=== PATIENT | female | born 1995 | race Caucasian/White ===

== ENCOUNTER 2016-10-28 13:10 | Emergency (ER) | payer BC ==
[~2016-10-28] VITALS: Ht 160 cm; Wt 61.0 kg
[2016-10-28 13:12] VITALS: Ht 160 cm; Wt 61.0 kg
[2016-10-28] MEDS ORDERED: ACETAMINOPHEN 325 MG TAB PO STA (13:53)
[2016-10-28] MEDS ORDERED: ONDANSETRON (ODT) 4 MG TAB ODT STA (13:53)
[2016-10-28 14:12] LABS: URINE BLOOD (Dip) POC Trace-intact (NEGATIVE)
[2016-10-28 14:36] LABS: ADD SCAN DIFF NO
[2016-10-28 14:40] LABS: BASOPHIL # 0.1 10^3/ul (0.0-0.1); BASOPHILS % 0.5 % (0.0-2.0); EOSINOPHILS # 1.5 10^3/ul (0.0-0.5); HEMATOCRIT 47.9 % (37.0-47.0); HEMOGLOBIN 16.6 g/dl (12.0-16.0); LYMPHOCYTES % 27.7 % (15.0-51.0); MEAN CORPUSCULAR HEMOGLOBIN 31.9 pg (29.0-33.0); MEAN CORPUSCULAR HGB CONC 34.7 g/dl (32.0-37.0); MEAN CORPUSCULAR VOLUME 92.1 fl (82.0-101.0); MEAN PLATELET VOLUME 9.9 fl (7.4-10.4); MONOCYTE # 0.7 10^3/ul (0.3-0.9); MONOCYTES % 6.1 % (0.0-11.0); NEUTROPHIL # 5.6 10^3/ul (1.6-7.5); NEUTROPHILS % 51.3 % (39.0-77.0); PLATELET COUNT 324 10^3/UL (140-415); RED CELL DISTRIBUTION WIDTH 12.5 % (11.5-14.5); WHITE BLOOD COUNT 10.8 10^3/ul (4.8-10.8)
[2016-10-28 14:58] LABS: ALBUMIN 5.2 g/dl (3.3-4.9); POTASSIUM 3.7 mmol/L (3.5-5.1)
[2016-10-28 15:00] LABS: BILIRUBIN,INDIRECT 0.6 mg/dl (0-1.1); BILIRUBIN,TOTAL 0.6 mg/dl (0.2-1.3); CREATININE 0.73 mg/dl (0.44-1.00)
[2016-10-28 15:01] LABS: ALBUMIN/GLOBULIN RATIO 1.2; CALCIUM 10.1 mg/dl (8.4-10.2); TOTAL PROTEIN 9.5 g/dl (6.1-8.1)
[2016-10-28] MEDS ORDERED: HYDROCODONE/APAP (5/325) TAB PO STA (15:29)
[2016-10-28] MEDS ORDERED: HYDROCODONE/APAP (10/325) TAB PO STA (15:30)
[2016-10-28] MEDS ORDERED: NITROFURANTOIN (SR) 100 MG CAP PO STA (15:31)
--- NOTE | 2016-10-28 16:26 | RADRPT ---
PROCEDURE: US Abdomen. CLINICAL INDICATION: abdominal pain TECHNIQUE: Multiple real-time images were acquired of the patient's right upper quadrant abdomen a nd retroperitoneum utilizing a high resolution transducer. COMPARISON: None FINDINGS: The liver demonstrates normal echogenicity. The liver is normal in size and no focal solid lesions are seen. The liver measures 12.8 cm in length. The portal vein is patent with normal direction of f low. No intrahepatic biliary dilatation is seen. No gallstones are identified within the gallbladder. There is no pericholecystic fluid or gallbladd er wall thickening. The common bile duct measures 3 mm in maximal dimension. The pancreas is not well seen due to overlying bowel gas. No free fluid is identified. The right kidney is normal in size, and demonstrate normal echogenicity and cortical thickness. The right kidney measures 9.4 cm in long dimension. There is no evidence of hydronephrosis. There are no kidney stones. RPTAT: AA IMPRESSION: Unremarkable right upper quadrant abdominal ultrasound. .Win Barahona MD, MD Date Time Electronically viewed and signed by .Win Barahona MD, MD on 10/28/2016 16:26 .S/
[2016-10-28] MEDS ORDERED: FAMO-18 PO (16:34)
[2016-10-28] MEDS ORDERED: ACET325T33 PO (16:34)
[2016-10-28] MEDS ORDERED: NITR-58 PO (16:34)
--- NOTE | 2016-10-28 18:34 | ERD ---
ER Documentation Chief Complaint Date/Time DATE: 10/28/16 TIME: 18:30 Chief Complaint ABDOMINAL PAIN,NAUSEA X 2WEEKS HPI This is a 21-year-old female presenting to the emergency department complaining of upper quadrant abdominal pain for the past 2 weeks that comes and goes. Patient states the pain is worse with food. At this moment she rates the pain 10 out of 10. Patient admits to having mild nausea. She denies any vomiting or diarrhea. Patient denies any fevers, dysuria. Denies any back pain. She has not taken any medications for this. Patient states that she has not gotten her menstrual period for years and states that she will be evaluated by a physician ROS All systems reviewed and are negative except as per history of present illness. Medications Home Meds Active Scripts Famotidine* (Pepcid*) 20 Mg Tablet, 20 MG PO DAILY, #20 TAB Prov:ADRIANA CALDWELL PA-C 10/28/16 Acetaminophen* (Tylenol*) 325 Mg Tablet, 2 TAB PO Q6 Y for PAIN AND OR ELEVATED TEMP, #20 TAB Prov:ADRIANA CALDWELL PA-C 10/28/16 Nitrofurantoin Monohyd Macrocr* (Macrobid*) 100 Mg Capsr, 100 MG PO BID for 7 Days, CAP Prov:ADRIANA CALDWELL PA-C 10/28/16 Allergies Allergies: Coded Allergies: No Known Allergy (Unverified , 10/28/16) PMhx/Soc Medical and Surgical Hx: pt denies Medical Hx, pt denies Surgical Hx Hx Alcohol Use: No Hx Substance Use: No Hx Tobacco Use: No Smoking Status: Never smoker Physical Exam Vitals Vital Signs Date Time Temp Pulse Resp B/P Pulse Ox O2 Delivery O2 Flow Rate FiO2 10/28/16 13:12 99.0 80 18 161/96 98 Physical Exam GENERAL: well-developed/well-nourished, in no apparent distress, non-toxic appearing HENT: NC/AT, moist mucous membranes EYES: Conjunctiva normal NECK: Supple, no lymphadenopathy PULM: CTA bilaterally, no rales, rhonchi, or wheezing heard CV: Normal S1S2, RRR, good capillary refill GI: Soft, non-distended, mild tender to palpation Normal bowel sounds, no masses or organomegaly felt on exam No gross peritonitis, no bruits Negative Rovsing, negative White, negative McBurney's point, Negative CVAT BACK: No masses EXT: No clubbing, cyanosis, or edema NEURO: Alert and Orientated SKIN: Intact, normal turgor PSYCH: Normal mood and mentation Result Diagram: 10/28/16 1405 10/28/16 1405 Results 24 hrs Laboratory Tests Test 10/28/16 14:05 10/28/16 14:13 White Blood Count 10.810^3/ul Red Blood Count 5.2010^6/ul Hemoglobin 16.6g/dl Hematocrit 47.9% Mean Corpuscular Volume 92.1fl Mean Corpuscular Hemoglobin 31.9pg Mean Corpuscular Hemoglobin Concent 34.7g/dl Red Cell Distribution Width 12.5% Platelet Count 87057^3/UL Mean Platelet Volume 9.9fl Neutrophils % 51.3% Lymphocytes % 27.7% Monocytes % 6.1% Eosinophils % 14.0% Basophils % 0.5% Nucleated Red Blood Cells % 0.0/100WBC Neutrophils # 5.610^3/ul Lymphocytes # 3.010^3/ul Monocytes # 0.710^3/ul Eosinophils # 1.510^3/ul Basophils # 0.110^3/ul Nucleated Red Blood Cells # 0.010^3/ul Sodium Level 144mmol/L Potassium Level 3.7mmol/L Chloride Level 100mmol/L Carbon Dioxide Level 28mmol/L Anion Gap 20 Blood Urea Nitrogen 9mg/dl Creatinine 0.73mg/dl Glucose Level 105mg/dl Calcium Level 10.1mg/dl Total Bilirubin 0.6mg/dl Direct Bilirubin 0.00mg/dl Indirect Bilirubin 0.6mg/dl Aspartate Amino Transf (AST/SGOT) 29IU/L Alanine Aminotransferase (ALT/SGPT) 38IU/L Alkaline Phosphatase 109IU/L Total Protein 9.5g/dl Albumin 5.2g/dl Globulin 4.30g/dl Albumin/Globulin Ratio 1.20 Lipase 105U/L Bedside Urine pH (LAB) 7.0 Bedside Urine Protein (LAB) Negative Bedside Urine Glucose (UA) Negative Bedside Urine Ketones (LAB) Negative Bedside Urine Blood Trace-intact Bedside Urine Nitrite (LAB) Negative Bedside Urine Leukocyte Esterase (L 2+ Current Medications Medications (Trade) Dose Ordered Sig/Shelby Route PRN Reason Start Time Stop Time Status Last Admin Dose Admin Ondansetron HCl (Zofran Odt) 4 mg ONCE STAT ODT 10/28/16 13:53 10/28/16 13:57 DC 10/28/16 14:04 Acetaminophen (Tylenol Tab) 650 mg ONCE STAT PO 10/28/16 13:53 10/28/16 13:57 DC 10/28/16 14:04 Acetaminophen/ Hydrocodone Bitart ([place] (5/325)) 1 tab ONCE STAT PO 10/28/16 15:29 10/28/16 15:30 DC Acetaminophen/ Hydrocodone Bitart ([place] (10/325)) 1 tab ONCE STAT PO 10/28/16 15:30 10/28/16 15:31 DC 10/28/16 15:36 Nitrofurantoin Macrocrystals (Macrobid) 100 mg ONCE STAT PO 10/28/16 15:31 10/28/16 15:32 DC 10/28/16 15:36 Procedures/MDM This is a 21-year-old female presenting to the emergency room complaining of the upper quadrant abdominal pain with mild nausea for the past 2 weeks. Differentials include but not limited to pink otitis, cholecystitis, gastritis, PUD, pyonephritis, urinary tract infection and other acute abdominal conditions. Patient appears well, she has stable vital signs. Lab work was drawn. CBC did not show any evidence of leukocytosis or anemia. CMP did not show any evidence of renal, liver, or electrolyte abnormalities. Lipase was normal. U urine dipstick showed positive a +2 leukocyte esterase therefore she will be treated empirically for urinary tract infection. In the ED patient was given Macrobid. Patient was given [place] and Tylenol for pain she had some improvement. A gallbladder ultrasound was done and was unremarkable for cholelithiasis. Patient will be prickly treated for urinary tract infection and gastritis and I have given her precautions to follow-up with her primary care physician for further action management. I discussed return the ER for any worsening symptoms. Patient stable for discharge. Prescriptions Pepcid, Macrobid and Tylenol have been provided Departure Diagnosis: Primary Impression: UTI (urinary tract infection) Additional Impression: Abdominal pain Condition: Stable Patient Instructions: Abdominal Pain, Understanding Urinary Tract Infections ( UTIs) Additional Instructions: FOLLOW UP WITH YOUR PRIMARY CARE PHYSICIAN TOMORROW.Return to this facility if you are not improving as expected. Take all medicines as directed. Call your primary care doctor TOMORROW for an appointment during the next 1-2 days.See the doctor sooner or return here if your condition worsens before your appointment time. ADRIANA CALDWELL PA-C Oct 28, 2016 18:34
== END 2016-10-28 16:55 | disposition home or self-care (01) ==
LOC: FTE 13:10
DX: N39.0 Urinary tract infection, site not specified (principal); R11.0 Nausea
CPT/HCPCS: 76705; 80053; 81003; 83690; 85025; Z7610; 36415

== ENCOUNTER 2016-10-30 11:11 | Emergency (ER) | payer BC ==
[~2016-10-30] VITALS: Ht 154.9 cm; Wt 51.1 kg
[~2016-10-30 11:11] MED LIST: ACET325T33 PO; FAMO-96 PO; NITR-58 PO
[2016-10-30 11:17] VITALS: Ht 154.9 cm; Wt 51.1 kg
[2016-10-30] MEDS ORDERED: LIDOCAINE/MYLANTA 40 ML BTL PO ONE (13:00)
[2016-10-30] MEDS ORDERED: OMEP20CA16 PO (13:09)
--- NOTE | 2016-10-30 15:16 | ERD ---
ER Documentation Chief Complaint Date/Time DATE: 10/30/16 TIME: 15:12 Chief Complaint AP, HERE LAST SUNDAY C/O SAME HPI 21-year-old female patient with no significant past medical history presents to the ED complaining of abdominal pain in the epigastric region that started 1 week ago on Sunday. States that she was fully worked up and everything was negative. Reports that she has been taking her Macrobid for her urinary tract infection. States that the pain slightly gets worse with food. Describes the pain as sharp and needlelike and rates it a 3 out of 10. Denies any nausea, vomiting, diarrhea, constipation, chest pain, shortness of breath, wheezing, fever, chills, cough. Denies any vaginal bleeding, vaginal discharge. ROS All systems reviewed and are negative except as per history of present illness. Medications Home Meds Active Scripts Omeprazole* (Omeprazole*) 20 Mg Capsule.dr, 20 MG PO BID, #30 CAP Prov:TON THAKUR PA-C 10/30/16 Famotidine* (Pepcid*) 20 Mg Tablet, 20 MG PO DAILY, #20 TAB Prov:ADRIANA CALDWELL PA-C 10/28/16 Acetaminophen* (Tylenol*) 325 Mg Tablet, 2 TAB PO Q6 Y for PAIN AND OR ELEVATED TEMP, #20 TAB Prov:ADRIANA CALDWELL PA-C 10/28/16 Nitrofurantoin Monohyd Macrocr* (Macrobid*) 100 Mg Capsr, 100 MG PO BID for 7 Days, CAP Prov:ADRIANA CALDWELL PA-C 10/28/16 Allergies Allergies: Coded Allergies: No Known Allergy (Unverified , 10/30/16) PMhx/Soc Medical and Surgical Hx: pt denies Medical Hx, pt denies Surgical Hx Hx Alcohol Use: No Hx Substance Use: No Hx Tobacco Use: No Smoking Status: Never smoker Physical Exam Vitals Vital Signs Date Time Temp Pulse Resp B/P Pulse Ox O2 Delivery O2 Flow Rate FiO2 10/30/16 11:41 98.2 68 20 118/68 99 Physical Exam Const: [id number]-[id number], well-nourished. In no acute distress. Head: Atraumatic, normocephalic Eyes: Normal Conjunctiva without injection. No purulent discharge. ENT: Normal external ear, nose. Moist oropharynx without tonsillar exudates. Non -erythematous pharynx. Uvula midline. No drooling. No trismus. Neck: No cervical midline tenderness. Full range of motion. No meningismus. No cervical lymphadenopathy. No JVD. Resp: Clear to auscultation bilaterally. No wheezing, rhonchi, rales, or crackles. No accessory muscle use. No retractions. Cardio: Regular rate and rhythm. No murmurs, rubs or gallops. Abd: Soft, epigastric tenderness, non distended. Normal bowel sounds. No palpable masses. No rebound tenderness. No guarding. Negative McBurney's point. Negative psoas sign. Negative obturator sign. Skin: No petechiae or rashes Back: No midline tenderness. No CVA tenderness. Ext: No cyanosis, or edema. Neur: Awake and alert. Normal gait. Normal coordination. Psych: Normal Mood and Affect Results 24 hrs Current Medications Medications (Trade) Dose Ordered Sig/Shelby Route PRN Reason Start Time Stop Time Status Last Admin Dose Admin Miscellaneous Medication (Gi Cocktail (2)) 40 ml ONCE ONCE PO 10/30/16 13:00 10/30/16 13:01 DC 10/30/16 12:52 Procedures/MDM This is a 21-year-old female patient with no significant past medical history presents to the ED complaining of epigastric pain. Patient is afebrile and nontoxic-appearing. Patient has normal vital signs. Patient had a full workup 1 week ago and work up was negative for any acute intraabdominal emergent findings. Patient was given a GI cocktail here in the ED with improvement. Negative urine . Differentials include gastritis versus GERD. Patient was instructed to follow-up with a digital imaging specialist for further evaluation with an endoscopy. No right upper quadrant tenderness. Low suspicion for cholecystitis, choledocholithiasis, cholangitis, pancreatitis, appendicitis , bowel obstruction, ileus, volvulus, nephrolithiasis, pyelonephritis, hepatitis , perforated viscus, diverticulitis, abdominal hernia, acute abdomen, mesenteric ischemia or other emergent conditions. Discharge medications: Omeprazole Follow up with primary care physician in 1-2 days for a referral to digital imaging specialist. Instructed patient to return to the ED sooner for any worsening symptoms. Patient's questions were answered. Patient understood and agreed with discharge plan. Patient discharged stable. Departure Diagnosis: Primary Impression: Epigastric pain Condition: Stable Patient Instructions: Gerd (Adult), Gastritis Vs. Ulcer, Epigastric Pain ( Uncertain Cause) Referrals: [facility] YOU HAVE RECEIVED A MEDICAL SCREENING EXAM AND THE RESULTS INDICATE THAT YOU DO NOT HAVE A CONDITION THAT REQUIRES URGENT TREATMENT IN THE EMERGENCY DEPARTMENT. FURTHER EVALUATION AND TREATMENT OF YOUR CONDITION CAN WAIT UNTIL YOU ARE SEEN IN YOUR DOCTORS OFFICE WITHIN THE NEXT 1-2 DAYS. IT IS YOUR RESPONSIBILITY TO MAKE AN APPOINTMENT FOR FOLOW-UP CARE. IF YOU HAVE A PRIMARY DOCTOR --you should call your primary doctor and schedule an appointment IF YOU DO NOT HAVE A PRIMARY DOCTOR YOU CAN CALL OUR PHYSICIAN REFERRAL HOTLINE AT IF YOU CAN NOT AFFORD TO SEE A PHYSICIAN YOU CAN CHOSE FROM THE FOLLOWING [facility] [address] [facility] [address] [facility] [address] [facility] [address] [facility] [address] [facility]. [facility] [address] [facility]. [facility] YOU HAVE RECEIVED A MEDICAL SCREENING EXAM AND THE RESULTS INDICATE THAT YOU DO NOT HAVE A CONDITION THAT REQUIRES URGENT TREATMENT IN THE EMERGENCY DEPARTMENT. FURTHER EVALUATION AND TREATMENT OF YOUR CONDITION CAN WAIT UNTIL YOU ARE SEEN IN YOUR DOCTORS OFFICE WITHIN THE NEXT 1-2 DAYS. IT IS YOUR RESPONSIBILITY TO MAKE AN APPOINTMENT FOR FOLOW-UP CARE. IF YOU HAVE A PRIMARY DOCTOR --you should call your primary doctor and schedule and appointment IF YOU DO NOT HAVE A PRIMARY DOCTOR YOU CAN CALL OUR PHYSICIAN REFERRAL HOTLINE AT . IF YOU CAN NOT AFFORD TO SEE A PHYSICIAN YOU CAN CHOSE FROM THE FOLLOWING [facility] INSTITUTIONS: [facility] [address] [place] [address] [facility] [address] [place] [address] [facility] + [facility] [address] [place] [address] [facility] URGENT CARE/SPECIALTIES Additional Instructions: FOLLOW UP WITH YOUR PRIMARY CARE PHYSICIAN TOMORROW for a referral to digital imaging specialist.Return to this facility if you are not improving as expected. TON THAKUR PA-C Oct 30, 2016 15:16
== END 2016-10-30 13:30 | disposition home or self-care (01) ==
LOC: FTE 11:11
DX: R10.13 Epigastric pain (principal)
CPT/HCPCS: 99283